=== PATIENT | female | born 1965 | race Caucasian/White ===

== ENCOUNTER 2017-03-21 19:01 | Emergency (ER) | payer OTHER ==
[~2017-03-21] VITALS: Ht 167.6 cm; Wt 86.6 kg
[2017-03-21 19:40] LABS: HEMATOCRIT 37.9 % (36.0-46.0); MCH 26.3 PG (29.0-34.0); MCHC 32.5 G/DL (30.0-36.0); MCV 81.2 FL (83-99); MEAN PLAT.VOLUME 9.5 uM^3 (9.5-12.4); PLATELET COUNT 224 K/uL (156-360); RBC DIS.WIDTH-CV 13.7 % (11.8-14.6); RBC DIS.WIDTH-SD 40.2 % (39-53); RED BLOOD COUNT 4.67 M/uL (3.80-5.20); WHITE BLOOD COUNT 11.4 K/uL (4.1-10.2)
[2017-03-21 19:52] LABS: CHLORIDE 107 mEq/L (99-109)
[2017-03-21 19:53] LABS: POTASSIUM 3.5 mEq/L (3.7-5.4); SODIUM 137 mEq/L (136-147)
[2017-03-21 19:55] LABS: GLUCOSE 108 mg/dL (70-99)
[2017-03-21 19:56] LABS: ANION GAP 10 MEQ/L (2-14)
[2017-03-21 19:58] LABS: ALKALINE PHOSPHATASE 49 IU/L (3-129)
[2017-03-21 19:59] LABS: GFR ESTIMATE (CALCULATED) > 59 mL/min/
[2017-03-21 20:00] LABS: UREA NITROGEN (BUN) 17 mg/dL (9-23)
[2017-03-21 20:02] LABS: CREATINE KINASE 100 IU/L (1-294)
[2017-03-21] MEDS ORDERED: FIORICET 50-301 EACH PO (20:10)
[2017-03-21 20:20] VITALS: BP 141/75
== END 2017-03-21 20:25 | disposition home or self-care (01) ==
LOC: EME 19:01 → EXP 19:01
PROVIDERS: Physician Assistant
DX: G43.909 Migraine, unspecified, not intractable, without status migrainosus (principal); Z91.018 Allergy to other foods; Z91.030 Bee allergy status
CPT/HCPCS: 80053; 81003; 82550; 85027; 99281; 99284; J1200; J1885; J2765; J7030